=== PATIENT | male | born 1985 | race Caucasian/White ===

== ENCOUNTER 2017-01-16 10:32 | Emergency (ER) | payer OTHER ==
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
--- NOTE | 2017-01-16 14:56 | ED MAR SUMMARY ---
..... Medication Administration Record Formerly [facility] [address], [place] [id number] Patient: GERA ULRICH Visit ID: [id number] 31y, M Weight: 74.8 kg Height/Length: 69 in BMI: 24.4 ALLERGIES: No Known Drug Allergy
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
--- NOTE | 2017-01-16 14:56 | ED ORDER SUMMARY ---
..... Patient: GERA ULRICH OrderSheet [facility] VisitID: [id number] [address] [place] [address] 31y, M Registration Date/Time: 01/16/2017 ORDER SHEET Weight: 74.8 kg (stated) Allergies: No Known Drug Allergy GENERAL ORDERS: Knee 4V Left Urgent (10:58 01/16/2017 Corazon JEWELL) (Ack 10:59 TBeryazan) (11:16 Magdalena Tay.Chantelle) MEDICATION ORDERS: IV FLUIDS: ORDER SHEET NOTES: [Electronically signed by Jody Carrillo R.N. (12:30 01/16/2017)] [Electronically signed by Minor Hussein MD (14:56 01/16/2017)] [Electronically locked/signed by Jody Carrillo R.N. (12:30 01/16/2017)]
--- NOTE | 2017-01-16 14:56 | ED MED RECONCILIATION SUMMARY ---
Patient: GERA ULRICH Medication Reconciliation Report [facility] VisitID: [id number] [address] [place] [address] 31y, M Registration Date/Time: 01/16/2017 Weight: 74.8 kg Height/Length: 69 in. BMI: 24.4 ALLERGIES: No Known Drug Allergy The patient's Home Medications are listed below: NONE. The source(s) of the original Home Medication information: Not obtained. The following Medications were given to the patient in the Emergency Department: None. The following Medications were prescribed to the patient: Cephalexin 500mg: take 1 tab orally every 6 hours for 7 days. No refills -- Minor Hussein MD
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
--- NOTE | 2017-01-16 14:56 | ED MED RECONCILIATION SUMMARY ---
Patient: GERA ULRICH Medication Reconciliation Report [facility] VisitID: [id number] [address] [place] [address] 31y, M Registration Date/Time: 01/16/2017 Weight: 74.8 kg Height/Length: 69 in. BMI: 24.4 ALLERGIES: No Known Drug Allergy The patient's Home Medications are listed below: NONE. The source(s) of the original Home Medication information: Not obtained. The following Medications were given to the patient in the Emergency Department: None. The following Medications were prescribed to the patient: Cephalexin 500mg: take 1 tab orally every 6 hours for 7 days. No refills -- Minor Hussein MD
--- NOTE | 2017-01-16 14:56 | ED MAR SUMMARY ---
..... Medication Administration Record [facility] [address] [place], [place] [id number] Patient: GERA ULRICH Visit ID: [id number] 31y, M Weight: 74.8 kg Height/Length: 69 in BMI: 24.4 ALLERGIES: No Known Drug Allergy
--- NOTE | 2017-01-16 14:56 | ED ORDER SUMMARY ---
..... Patient: GERA ULRICH OrderSheet [facility] VisitID: [id number] [address] [place] [address] 31y, M Registration Date/Time: 01/16/2017 ORDER SHEET Weight: 74.8 kg (stated) Allergies: No Known Drug Allergy GENERAL ORDERS: Knee 4V Left Urgent (10:58 01/16/2017 Corazon JEWELL) (Ack 10:59 TBeryazan) (11:16 Magdalena Tay.Chantelle) MEDICATION ORDERS: IV FLUIDS: ORDER SHEET NOTES: [Electronically signed by Jody Carrillo R.N. (12:30 01/16/2017)] [Electronically signed by Minor Hussein MD (14:56 01/16/2017)] [Electronically locked/signed by Jody Carrillo R.N. (12:30 01/16/2017)]
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
== END 2017-01-16 12:29 | disposition home or self-care (01) ==
LOC: ED SRH 10:32
DX: S81.802A Unspecified open wound, left lower leg, initial encounter (principal); W34.00XA Accidental discharge from unspecified firearms or gun, initial encounter; Y93.89 Activity, other specified; Y92.64 Mine or pit as the place of occurrence of the external cause; Y99.9 Unspecified external cause status